=== PATIENT | male | born 1955 | race Two or more races ===

== ENCOUNTER → 2016-12-07 | Outpatient (REF) | payer OTHER ==
[2016-12-07 12:05] LABS: MEAN CORPUSCULAR HEMOGLOBIN 34.1 pg (27.0-33.0); MEAN CORPUSCULAR HGB CONC 34.5 g/dl (32.0-36.5); MEAN CORPUSCULAR VOLUME 98.6 fl (80.0-96.0); WHITE BLOOD COUNT 10.6 10^3/uL (4.0-10.0)
[2016-12-07 12:37] LABS: ALBUMIN 4.1 GM/DL (3.2-5.2); ALBUMIN/GLOBULIN RATIO 1.37 (1.00-1.93); ALKALINE PHOSPHATASE 90 U/L (45-117); ALT/SGPT 27 U/L (12-78); ANION GAP 8 MEQ/L (8-16); AST/SGOT 21 U/L (15-37); BILIRUBIN,TOTAL 0.6 MG/DL (0.2-1.0); BLOOD UREA NITROGEN 12 MG/DL (7-18); CALCIUM LEVEL 9.3 MG/DL (8.8-10.2); CARBON DIOXIDE LEVEL 26 MEQ/L (21-32); CHLORIDE LEVEL 106 MEQ/L (98-107); CHOLESTEROL LEVEL 154 MG/DL (<200); CREATININE FOR GFR 0.89 MG/DL (0.70-1.30); GLOMERULAR FILTRATION RATE > 60.0 (>49); GLUCOSE, FASTING 140 MG/DL (80-110); POTASSIUM SERUM 4.2 MEQ/L (3.5-5.1); SODIUM LEVEL 140 MEQ/L (136-145); TOTAL PROTEIN 7.1 GM/DL (6.4-8.2); TRIGLYCERIDES LEVEL 174 MG/DL (<150); URIC ACID 6.9 MG/DL (3.5-7.2)
== END ==
LOC: M SFHCCLAY 08:29
PROVIDERS: ATTEND Nurse Practitioner Family
DX: I25.10 Atherosclerotic heart disease of native coronary artery without angina pectoris (principal); E78.5 Hyperlipidemia, unspecified; Z13.21 Encounter for screening for nutritional disorder; M25.512 Pain in left shoulder

== ENCOUNTER 2020-07-01 11:07 | Emergency (ER) | payer MEDICARE, OTHER ==
[~2020-07-01] VITALS: Ht 175.3 cm; Wt 71.0 kg
[2020-07-01] MEDS ORDERED: CLOP75TA2 (11:22)
[2020-07-01] MEDS ORDERED: ATOR80TA59 (11:24)
[2020-07-01] MEDS ORDERED: ECOT81TA5 PO (11:24)
[2020-07-01] MEDS ORDERED: METO1TAB32 (11:24)
[2020-07-01] MEDS ORDERED: LOSA25TA14 (11:24)
[2020-07-01] MEDS ORDERED: NITR4TASL SL (11:25)
[2020-07-01 12:12] LABS: BASO # 0.1 10^3/uL (0.0-0.2); BASO % 0.5 % (0.0-1.0); EOS # 0.1 10^3/uL (0.0-0.5); EOS % 0.8 % (0.0-3.0); HEMATOCRIT 43.6 % (42.0-52.0); HEMOGLOBIN 15.4 g/dl (13.5-17.5); LYMPH # 1.8 10^3/uL (1.5-5.0); MEAN CORPUSCULAR HEMOGLOBIN 34.7 pg (27.0-33.0); MEAN CORPUSCULAR HGB CONC 35.3 g/dl (32.0-36.5); MEAN CORPUSCULAR VOLUME 98.2 fl (80.0-96.0); MONO # 0.8 10^3/uL (0.0-0.8); MONO % 8.1 % (2.0-8.0); NEUTROPHILS # 6.8 10^3/uL (1.5-8.5); PLATELET COUNT, AUTOMATED 242 10^3/uL (150-450); RED BLOOD COUNT 4.44 10^6/uL (4.30-6.10); WHITE BLOOD COUNT 9.5 10^3/uL (4.0-10.0)
[2020-07-01 12:37] LABS: ALT/SGPT 31 U/L (12-78); BILIRUBIN,DIRECT 0.2 MG/DL (0.0-0.2); BILIRUBIN,TOTAL 0.8 MG/DL (0.2-1.0); CK-MB VALUE MASS 1.4 NG/ML (<3.6); CPK CREATINE PHOSPHOKINASE 103 U/L (39-308); LIPASE 377 U/L (73-393); MB/CK RELATIVE INDEX 1.36 (< OR =4); TOTAL PROTEIN 6.8 GM/DL (6.4-8.2); TROPONIN I < 0.02 NG/ML (< 0.10)
--- NOTE | 2020-07-01 12:47 | REP ---
INDICATION: CHEST PAIN. COMPARISON: None. TECHNIQUE: Single portable AP view of the chest was performed. FINDINGS: There is no acute infiltrate or pulmonary edema. Lungs are clear. The heart is not significantly enlarged. The mediastinal silhouette is unremarkable. The visualized osseous structures are intact. IMPRESSION: No acute pulmonary disease. <Electronically signed by Son Reyes > 07/01/20 [id number]
[2020-07-01] MEDS ORDERED: ISOVUE-370 76% 100ML VIAL As Ordered ONE (12:51)
[2020-07-01] MEDS ORDERED: NORCO, ANEXSIA 5/325MG TABLET (HYDROcodone/ACETAMINOPHEN) PO ONE (13:05)
[2020-07-01] MEDS ORDERED: ACETAMINOPHEN TAB 650MG DOSE (2X325MG) PO ONE (13:35)
--- NOTE | 2020-07-01 13:38 | REP ---
INDICATION: neck pain. COMPARISON: None. TECHNIQUE: CT angiogram chest performed following the intravenous administration of 100 cc of Isovue 370. Sagittal and coronal reconstruction images are performed. FINDINGS: Lungs: Clear, no infiltrate or nodule. Diffuse mild interstitial fibrotic changes noted. Mediastinum: No adenopathy. Pulmonary arteries: No evidence of pulmonary embolism. Shima: No adenopathy. Axilla: No adenopathy. Pleura: No effusion. Heart: Not enlarged. Thoracic aorta: No aneurysm or dissection. Upper abdominal structures: Unremarkable. Visualized osseous structures: There are degenerative changes of the spine without compression deformity.. There is a 9 mm right thyroid nodule which is of doubtful significance. IMPRESSION: No CT evidence of pulmonary embolism or aortic dissection. No infiltrate seen. <Electronically signed by Son Reyes > 07/01/20 [id number]
--- NOTE | 2020-07-01 13:48 | REP ---
INDICATION: neck pain COMPARISON: None. TECHNIQUE: Contrast enhancement dose is 100 mL of intravenous Isovue 370. Helical scanning is acquired. 2 mm axial images are re-formatted. Coronal and sagittal MPR images are generated. Coronal and sagittal MIP and oblique MPR images are generated. 3D surface rendered images are generated and viewed rotationally. FINDINGS: There is good opacification of the arterial tree. There is some vascular calcification in the innominate artery on the right and mild vascular calcification is seen at the origin of the right vertebral artery. The right vertebral artery is slightly larger than the left but vertebrals are widely patent without evidence of occlusion or dissection. Common carotid arteries are unremarkable bilaterally. There is mild calcific plaquing at the origin of the ICA on the left with less than 50% narrowing. The left internal carotid artery is unremarkable. The right carotid bifurcation is for clear. There is no evidence of stenosis, occlusion or dissection. Maximum intensity projection and curved MPR images show no additional finding. Incidental note is made of a right thyroid nodule measuring 10 mm in greatest diameter. There is partial opacification and mucosal thickening in the left maxillary sinus. IMPRESSION: Calcific plaquing at the origin of the ICA on the left and the right vertebral. No high-grade stenosis occlusion or dissection is evident. <Electronically signed by Shaw Lai > 07/01/20 [id number]
[2020-07-01 14:59] VITALS: BP 179/92
--- NOTE | 2020-07-01 17:13 | ECGEPIP ---
[facility] - ED Test Date: 2020-07-01 Pat Name: ALON WHITE Department: Room: - Gender: Male [employer]: CHA : 1955 Requested By: Blanquita Carcamo Order Number: [id number] Reading MD: Yonis Jernigan Measurements Intervals [place] Rate: 77 P: 66 LA: 192 QRS: -47 QRSD: 96 T: 69 QT: 368 QTc: 416 Interpretive Statements Normal sinus rhythm LEFT AXIS DEVIATION Comparison tracing not on file Electronically Signed on 07-01-2020 17:13:01 EDT by Yonis Jernigan
== END 2020-07-01 15:48 | disposition home or self-care (01) ==
LOC: M ED 11:07
DX: M54.2 Cervicalgia (principal); M54.6 Pain in thoracic spine; E04.1 Nontoxic single thyroid nodule; I10 Essential (primary) hypertension; I25.10 Atherosclerotic heart disease of native coronary artery without angina pectoris; I25.2 Old myocardial infarction; E78.5 Hyperlipidemia, unspecified; Z95.5 Presence of coronary angioplasty implant and graft; Z79.899 Other long term (current) drug therapy; Z79.82 Long term (current) use of aspirin; Z79.01 Long term (current) use of anticoagulants
CPT/HCPCS: 36415; 70498; 71045; 71275; 80047; 80076; 82550; 82553; 83690; 84484; 85025; 93005; 93041; 94760; 99285; Q9967

== ENCOUNTER → 2020-08-09 | Outpatient (REF) | payer MEDICARE ==
[~2020-08-09] MED LIST: ATOR80TA59; CLOP75TA2; ECOT81TA5 PO; LOSA25TA14; METO1TAB32; NITR4TASL SL
[2020-08-09 15:59] LABS: BACTERIA, URINE AUTO NEGATIVE (NEGATIVE); RBC, URINE AUTO 0 /HPF (0-3); SQUAMOUS EPITHELIAL CELL UR AU 0 /HPF (0-6); WBC, URINE AUTO 0 /HPF (0-3)
== END ==
LOC: M SMT 15:44
PROVIDERS: ATTEND Specialist
DX: R31.0 Gross hematuria (principal)
CPT/HCPCS: 81015; 87086; G0463

== ENCOUNTER → 2021-10-12 | Outpatient (CLI) | payer MEDICARE ==
[~2021-10-12] MED LIST changes: +LOSA25TA13; -LOSA25TA14
== END ==
LOC: M LABSMTC 09:19
PROVIDERS: ATTEND Surgery Vascular Surgery
DX: Z20.822 Contact with and (suspected) exposure to COVID-19 (principal)

== ENCOUNTER → 2022-01-31 | Outpatient (REF) | payer MEDICARE ==
[2022-01-31 18:20] LABS: APPEARANCE, URINE MANUAL HAZY (CLEAR); BILIRUBIN, URINE MANUAL NEGATIVE (NEGATIVE); BLOOD URINE MANUAL POSITIVE (NEGATIVE); COLOR, URINE MANUAL YELLOW (YELLOW); GLUCOSE, URINE (UA) MANUAL 4+(1000 MG/DL) mg/dL (NEGATIVE); KETONE, URINE MANUAL NEGATIVE (NEGATIVE); LEUKOCYTE ESTERASE, URINE MAN NEGATIVE (NEGATIVE); NITRITE, URINE MANUAL NEGATIVE (NEGATIVE); PROTEIN, URINE MANUAL 1+ mg/dL (NEGATIVE); UROBILINOGEN, URINE MANUAL NORMAL (NORMAL)
[2022-01-31 18:54] LABS: BACTERIA, URINE SMALL AMOUNT; HYALINE CAST, URINE NONE SEEN /lpf (0-1); RBC, URINE 30-40 /hpf (0-3); SQUAMOUS EPITHELIAL CELL URINE SMALL AMOUNT /hpf (SMALL AMT)
== END ==
LOC: M SMT 17:23
PROVIDERS: ATTEND Nurse Practitioner Women's Health
DX: R31.0 Gross hematuria (principal)

== ENCOUNTER → 2022-04-05 | Outpatient (CLI) | payer MEDICARE ==
[~2022-04-05] MED LIST changes: +A-10CAP2 PO; +ACID100C PO; -ATOR80TA59; +ATOR80TA59 PO; +B-12100010 PO; -CLOP75TA2; +CLOP75TA2 PO; +COQ150CH PO; +D3 H2000 PO; +FERR29CA PO; -LOSA25TA13; +LOSA25TA13 PO; +MAG100TA PO; -METO1TAB32; +METO1TAB32 PO; +OXYC1TAB23 PO; +SELE200T15 PO; +VITA400T24 PO; +VITA500C24 PO; +VITATAB73 PO; +XARE20TA PO; +ZINC50TA34 PO
== END ==
LOC: M LABSMTC 09:25
PROVIDERS: ATTEND Anesthesiology
DX: Z01.812 Encounter for preprocedural laboratory examination (principal); Z20.822 Contact with and (suspected) exposure to COVID-19

== ENCOUNTER 2022-04-10 10:32 | Day surgery (SDC) | payer MEDICARE ==
[~2022-04-10] VITALS: Ht 172.7 cm; Wt 50.8 kg
[2022-04-10] MEDS ORDERED: LR 1,000 ML IV SCH ×2 (11:30→14:20)
[2022-04-10] MEDS ORDERED: ceFAZolin SOD 2 GM in IV 1 EA IV ONE (12:00)
[2022-04-10] MEDS ORDERED: ONDANSETRON 4MG 2ML VIAL As Ordered ONE (12:18)
[2022-04-10] MEDS ORDERED: ROCURONIUM BROMIDE 50MG/5ML VIAL As Ordered ONE (12:18)
[2022-04-10] MEDS ORDERED: propofoL 200 MG/20 ML VIAL As Ordered ONE (12:18)
[2022-04-10] MEDS ORDERED: LIDOCAINE 2% 100MG/5ML SDV (FOR ANES.) As Ordered ONE (12:18)
[2022-04-10] MEDS ORDERED: SUGAMMADEX SODIUM 500 MG/5 ML VIAL (BRIDION) As Ordered ONE (12:18)
[2022-04-10] MEDS ORDERED: MIDAZOLAM INJ 2MG/2ML VIAL As Ordered ONE (12:22)
[2022-04-10] MEDS ORDERED: fentaNYL 100 MCG/2 ML INJECTION As Ordered ONE (12:22)
[2022-04-10] MEDS ORDERED: ACETAMINOPHEN 1000MG 100ML IV BAG As Ordered ONE (13:32)
[2022-04-10] MEDS ORDERED: ONDANSETRON 4MG 2ML VIAL IV PRN (14:20)
[2022-04-10] MEDS ORDERED: OXYB5TAB10 PO (14:22)
[2022-04-10] MEDS ORDERED: PYRI1TAB5 PO (14:22)
[2022-04-10] MEDS ORDERED: MACR100C43 PO (14:22)
[2022-04-10] MEDS: fentaNYL 100 MCG/2 ML INJECTION IV PRN ×3 (14:39→14:49)
[2022-04-10] MEDS: HYDROMORPHONE HCL 0.5 MG/ 0.5 ML SYRINGE IV PRN ×4 (15:18→16:23)
[2022-04-10] MEDS ORDERED: oxyBUTYnin 5 MG TAB PO STA (15:23)
[2022-04-10] MEDS: oxyCODONE 5MG TAB PO PRN ×2 (16:10→16:42)
[2022-04-10] MEDS ORDERED: BELLADONNA 16.2mg/OPIUM 60mg 1 EA SUPP PR ONE (16:45)
[2022-04-10 18:10] VITALS: BP 138/65
== END 2022-04-10 18:25 | disposition home or self-care (01) ==
LOC: M SDC 10:32
PROVIDERS: ATTEND Urology
DX: C67.8 Malignant neoplasm of overlapping sites of bladder (principal); E78.5 Hyperlipidemia, unspecified; F17.210 Nicotine dependence, cigarettes, uncomplicated; F43.10 Post-traumatic stress disorder, unspecified; I10 Essential (primary) hypertension; I25.10 Atherosclerotic heart disease of native coronary artery without angina pectoris; I25.2 Old myocardial infarction; I73.9 Peripheral vascular disease, unspecified; R31.9 Hematuria, unspecified; Z79.899 Other long term (current) drug therapy; Z87.891 Personal history of nicotine dependence; Z95.1 Presence of aortocoronary bypass graft; Z95.5 Presence of coronary angioplasty implant and graft
CPT/HCPCS: 52240; 88305; C1769; J1100; J1170; J2250; J2405; J3010

== ENCOUNTER 2022-04-25 16:47 | Inpatient (IN) | payer MEDICARE ==
[~2022-04-25] VITALS: Ht 172.7 cm; Wt 70.5 kg
[~2022-04-25 16:47] MED LIST changes: +MACR100C43 PO; +METF10004 PO; +METO1TAB87 PO; +NITR100C2 PO; +OXYB5TAB10 PO; +PHEN-501; +PHEN-501 PO; +PYRI1TAB5 PO
[2022-04-25 21:11] LABS: BASO # 0.1 10^3/uL (0.0-0.2); BASO % 0.6 % (0.0-1.0); EOS # 0.2 10^3/uL (0.0-0.5); EOS % 1.4 % (0.0-3.0); HEMATOCRIT 37.8 % (42.0-52.0); HEMOGLOBIN 12.8 g/dl (13.5-17.5); LYMPH # 2.2 10^3/uL (1.5-5.0); LYMPH % 17.7 % (24.0-44.0); MEAN CORPUSCULAR HEMOGLOBIN 33.2 pg (27.0-33.0); MEAN CORPUSCULAR HGB CONC 33.9 g/dl (32.0-36.5); MEAN CORPUSCULAR VOLUME 98.2 fl (80.0-96.0); MONO # 0.9 10^3/uL (0.0-0.8); MONO % 6.9 % (2.0-8.0); NEUTROPHILS # 8.9 10^3/uL (1.5-8.5); NEUTROPHILS % 71.5 % (36.0-66.0); PLATELET COUNT, AUTOMATED 354 10^3/uL (150-450); RED BLOOD COUNT 3.85 10^6/uL (4.30-6.10); WHITE BLOOD COUNT 12.5 10^3/uL (4.0-10.0)
[2022-04-25 21:30] LABS: INR 1.05; PROTHROMBIN TIME 13.9 SECONDS (12.5-14.5)
[2022-04-25 21:31] LABS: PARTIAL THROMBOPLASTIN TIME 28.5 SECONDS (24.8-34.2)
[2022-04-25 21:40] LABS: BLOOD UREA NITROGEN 18 MG/DL (9-23); CALCIUM LEVEL 9.3 MG/DL (8.3-10.6); CARBON DIOXIDE LEVEL 29 MMOL/L (20-31); CHLORIDE LEVEL 101 MMOL/L (98-107); CREATININE FOR GFR 0.76 MG/DL (0.70-1.30); GLOMERULAR FILTRATION RATE > 60.0 (>49); GLUCOSE, FASTING 235 MG/DL (74-106); POTASSIUM SERUM 4.1 MMOL/L (3.5-5.1); SODIUM LEVEL 137 MMOL/L (136-145)
[2022-04-26] MEDS ORDERED: GLUCOSE 4GM CHEW TABLET PO PRN ×2 (01:05→10:00)
[2022-04-26] MEDS ORDERED: HYDROMORPHONE HCL 0.5 MG/ 0.5 ML SYRINGE IV PRN (01:05)
[2022-04-26] MEDS ORDERED: NS 500 ML IV ONE (01:05)
[2022-04-26] MEDS ORDERED: HYOSCYAMINE SULFATE 0.125 MG SUBL TABLET SL PRN (01:05)
[2022-04-26] MEDS ORDERED: DEXTROSE 50% 50ML SYRINGE IV PRN ×2 (01:05→10:00)
[2022-04-26] MEDS ORDERED: NS 1,000 ML IV SCH (01:05)
[2022-04-26] MEDS ORDERED: GLUCAGON INJ 1MG VIAL SC PRN ×2 (01:05→10:00)
[2022-04-26] MEDS ORDERED: MAGN400T35 PO (01:39)
[2022-04-26] MEDS ORDERED: NITR4TASL SL (01:39)
[2022-04-26] MEDS ORDERED: HOME MED LIST COMPLETE! XX SCH (01:40)
[2022-04-26] MEDS: INSULIN LISPRO (NovoLOG) PER UNIT SC SCH ×4 (02:09→17:11)
[2022-04-26 03:10] VITALS: BP 99/60
[2022-04-26 03:54] LABS: HEMATOCRIT 33.4 % (42.0-52.0); HEMOGLOBIN 11.1 g/dl (13.5-17.5)
[2022-04-26 05:48] VITALS: BP 116/65
[2022-04-26 07:32] LABS: HEMATOCRIT 34.8 % (42.0-52.0); HEMOGLOBIN 11.6 g/dl (13.5-17.5)
[2022-04-26 07:54] LABS: ALKALINE PHOSPHATASE 102 U/L (46-116); ALT/SGPT 19 U/L (7.0-40); AST/SGOT 24 U/L (<34); BILIRUBIN,TOTAL 0.4 MG/DL (0.3-1.2); BLOOD UREA NITROGEN 14 MG/DL (9-23); CALCIUM LEVEL 8.6 MG/DL (8.3-10.6); CARBON DIOXIDE LEVEL 29 MMOL/L (20-31); CHLORIDE LEVEL 104 MMOL/L (98-107); GLOMERULAR FILTRATION RATE > 60.0 (>49); GLUCOSE, FASTING 194 MG/DL (74-106); POTASSIUM SERUM 4.6 MMOL/L (3.5-5.1); SODIUM LEVEL 139 MMOL/L (136-145); TOTAL PROTEIN 5.3 G/DL (5.7-8.2)
[2022-04-26] MEDS: cefTRIAXone SOD 2 GM in D5W MINI-BAG PLUS 50 ML IV SCH (09:20)
[2022-04-26] MEDS: ASCORBIC ACID 500 MG TAB PO SCH (10:28)
[2022-04-26] MEDS: oxyBUTYnin 5 MG TAB PO SCH ×2 (10:29→20:33)
[2022-04-26] MEDS: CYANOCOBALAMIN 500 MCG TAB PO SCH (10:29)
[2022-04-26] MEDS: LOSARTAN 25 MG TAB PO SCH (10:30)
[2022-04-26] MEDS: METOPROLOL TART 25 MG TABLET PO SCH ×2 (10:30→20:33)
[2022-04-26] MEDS: ATORVASTATIN 20 MG TAB PO SCH (10:31)
[2022-04-26] MEDS: PHENAZOPYRIDINE 100 MG TAB PO SCH ×2 (11:51→20:33)
[2022-04-26 13:03] LABS: HEMATOCRIT 32.8 % (42.0-52.0); HEMOGLOBIN 10.8 g/dl (13.5-17.5)
[2022-04-26 14:00] VITALS: BP 90/61
[2022-04-26 16:36] VITALS: BP 136/69
[2022-04-26 19:17] LABS: HEMATOCRIT 31.6 % (42.0-52.0); HEMOGLOBIN 10.8 g/dl (13.5-17.5)
[2022-04-26 20:14] VITALS: BP 112/63
[2022-04-26] MEDS ORDERED: INSULIN LISPRO (NovoLOG) PER UNIT SC SCH (21:00)
[2022-04-26] MEDS ORDERED: MAGNESIUM OXIDE 400MG TAB (MAG-OX) PO SCH (21:00)
[2022-04-27 05:48] VITALS: BP 117/70
[2022-04-27 06:50] LABS: BASO % 0.4 % (0.0-1.0); EOS # 0.2 10^3/uL (0.0-0.5); EOS % 2.1 % (0.0-3.0); HEMATOCRIT 34.6 % (42.0-52.0); HEMOGLOBIN 11.4 g/dl (13.5-17.5); LYMPH # 1.9 10^3/uL (1.5-5.0); LYMPH % 24.9 % (24.0-44.0); MEAN CORPUSCULAR HEMOGLOBIN 32.9 pg (27.0-33.0); MEAN CORPUSCULAR HGB CONC 32.9 g/dl (32.0-36.5); MEAN CORPUSCULAR VOLUME 99.7 fl (80.0-96.0); MONO # 0.6 10^3/uL (0.0-0.8); MONO % 7.9 % (2.0-8.0); NEUTROPHILS # 4.8 10^3/uL (1.5-8.5); NEUTROPHILS % 63.3 % (36.0-66.0); PLATELET COUNT, AUTOMATED 288 10^3/uL (150-450); RED BLOOD COUNT 3.47 10^6/uL (4.30-6.10); WHITE BLOOD COUNT 7.6 10^3/uL (4.0-10.0)
[2022-04-27 07:21] LABS: ALKALINE PHOSPHATASE 112 U/L (46-116); ALT/SGPT 20 U/L (7.0-40); AST/SGOT 18 U/L (<34); BILIRUBIN,TOTAL 0.4 MG/DL (0.3-1.2); BLOOD UREA NITROGEN 13 MG/DL (9-23); CALCIUM LEVEL 8.6 MG/DL (8.3-10.6); CARBON DIOXIDE LEVEL 28 MMOL/L (20-31); CHLORIDE LEVEL 105 MMOL/L (98-107); GLOMERULAR FILTRATION RATE > 60.0 (>49); GLUCOSE, FASTING 236 MG/DL (74-106); MAGNESIUM LEVEL 1.3 MG/DL (1.8-2.4); POTASSIUM SERUM 4.4 MMOL/L (3.5-5.1); SODIUM LEVEL 140 MMOL/L (136-145); TOTAL PROTEIN 5.4 G/DL (5.7-8.2)
[2022-04-27] MEDS ORDERED: MAGNESIUM OXIDE 400MG TAB (MAG-OX) PO ONE (07:25)
[2022-04-27 07:54] VITALS: BP 124/73
[2022-04-27] MEDS: INSULIN LISPRO (NovoLOG) PER UNIT SC SCH ×2 (08:14→12:20)
[2022-04-27] MEDS ORDERED: FLUBLOK(EGG FREE)(QUAD)INFLUENZA VACC 0.5ML SYRINGE 18YRS & OLDER IM.IMMUN ONE (09:00)
[2022-04-27] MEDS: CYANOCOBALAMIN 500 MCG TAB PO SCH (09:47)
[2022-04-27] MEDS: ASCORBIC ACID 500 MG TAB PO SCH (09:48)
[2022-04-27] MEDS: oxyBUTYnin 5 MG TAB PO SCH (09:48)
[2022-04-27] MEDS: ATORVASTATIN 20 MG TAB PO SCH (09:48)
[2022-04-27] MEDS: LOSARTAN 25 MG TAB PO SCH (09:49)
[2022-04-27 09:50] VITALS: BP 124/73
[2022-04-27] MEDS: METOPROLOL TART 25 MG TABLET PO SCH (09:50)
[2022-04-27] MEDS: PHENAZOPYRIDINE 100 MG TAB PO SCH (09:50)
[2022-04-27] MEDS: cefTRIAXone SOD 2 GM in D5W MINI-BAG PLUS 50 ML IV SCH (09:53)
[2022-04-27 14:47] VITALS: BP 124/71
== END 2022-04-27 14:55 | disposition home or self-care (01) | DRG 696 ==
LOC: M ED 16:47 → M ED INP 04-26 01:03 → M MS5PR 04-26 02:45
PROVIDERS: ADMIT Internal Medicine; ATTEND Internal Medicine
DX: R31.0 Gross hematuria (principal); C68.0 Malignant neoplasm of urethra; E11.51 Type 2 diabetes mellitus with diabetic peripheral angiopathy without gangrene; I73.9 Peripheral vascular disease, unspecified; C67.9 Malignant neoplasm of bladder, unspecified; I25.10 Atherosclerotic heart disease of native coronary artery without angina pectoris; I10 Essential (primary) hypertension; Z87.891 Personal history of nicotine dependence; Z95.828 Presence of other vascular implants and grafts; Z79.84 Long term (current) use of oral hypoglycemic drugs; Z79.899 Other long term (current) drug therapy

== ENCOUNTER → 2022-05-08 | Outpatient (CLI) | payer MEDICARE ==
[~2022-05-08] MED LIST changes: +ISOVUE-370 76% 100ML VIAL As Ordered ONE; +MAGN400T35 PO
== END ==
LOC: M RAD 13:32
PROVIDERS: ATTEND Physician Assistant
DX: C67.8 Malignant neoplasm of overlapping sites of bladder (principal)
CPT/HCPCS: 71260; 74178; Q9967

== ENCOUNTER → 2022-05-12 | Outpatient (REF) | payer MEDICARE ==
[~2022-05-12] MED LIST changes: -ISOVUE-370 76% 100ML VIAL As Ordered ONE
[2022-05-12 13:51] LABS: APPEARANCE, URINE CLOUDY (CLEAR); BACTERIA, URINE AUTO NEGATIVE (NEGATIVE); BILIRUBIN, URINE AUTO NEGATIVE (NEGATIVE); BLOOD, URINE BLOOD 3+ (NEGATIVE); COLOR, URINE YELLOW (YELLOW); GLUCOSE, URINE (UA) AUTO 2+ mg/dL (NEGATIVE); KETONE, URINE AUTO TRACE mg/dL (NEGATIVE); LEUKOCYTE ESTERASE, URINE AUTO 3+ (NEGATIVE); NITRITE, URINE AUTO NEGATIVE (NEGATIVE); PROTEIN, URINE AUTO 3+ mg/dL (NEGATIVE); RBC, URINE AUTO TNTC /HPF (0-3); SPECIFIC GRAVITY URINE AUTO 1.024 (1.002-1.035); SQUAMOUS EPITHELIAL CELL UR AU 0 /HPF (0-6); UROBILINOGEN, URINE AUTO 0.2 mg/dL (0.0-2.0); WBC, URINE AUTO TNTC /HPF (0-3)
== END ==
LOC: M SMT 12:59
PROVIDERS: ATTEND Urology
DX: R31.0 Gross hematuria (principal)

== ENCOUNTER → 2022-09-26 | Outpatient (CLI) | payer MEDICARE, MEDICAID ==
[~2022-09-26] MED LIST changes: +GLIP5TAB20; +ISOVUE-370 76% 100ML VIAL As Ordered ONE
== END ==
LOC: M RAD 15:58
PROVIDERS: ATTEND Urology
DX: C67.9 Malignant neoplasm of bladder, unspecified (principal); N13.4 Hydroureter
CPT/HCPCS: 71260; 74177; Q9967